=== PATIENT | female | born 1990 | race African-American/Black ===

== ENCOUNTER → 2020-07-31 07:47 | Outpatient (CLI) | payer BC, SELFPAY ==
[2020-07-31] MEDS: COVID-19 VACC #1, MRNA(MOD) 100 MCG/0.5 ML VIAL IM (07:55)
== END ==
PROVIDERS: Visit Provider Internal Medicine
DX: Z23 Encounter for immunization (principal)
CPT/HCPCS: 0011A; 91301

== ENCOUNTER → 2020-08-28 08:07 | Outpatient (CLI) | payer OTHER, SELFPAY ==
[2020-08-28] MEDS: COVID-19 VACC #2, MRNA(MOD) 100 MCG/0.5 ML VIAL IM (08:15)
== END ==
PROVIDERS: Visit Provider Internal Medicine
DX: Z23 Encounter for immunization (principal)
CPT/HCPCS: 0012A; 91301

== ENCOUNTER → 2021-02-02 08:19 | Outpatient (CLI) | payer OTHER, SELFPAY ==
--- NOTE | 2021-02-02 08:21 | DIET.OUTPTC ---
Dietary Outpatient Consultation Note Consultation Date: 02/02/20[address] 30[address] visit for prediabetes and desire for weight loss. Ht: 5'4 Wt: 210# (has lost 10# in 40 days) no particular weight goal BMI: 36.0 Pt was working from home for several months and felt was healthier then because could cook healthy meals in middle of day. Pt stopped drinking etoh 40 days ago, was consuming 6 hard ciders throughout evening daily, has been eating pretty healthy for 6-8 months otherwise. 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 eats at 10am- triple zero tamazight yogurt c 1-2 cups fruit (cantaloupe, watermelon, grapes, kiwi) c water 12 lunch- workmates eat out- pt does not, 3oz turkey, 15 carrots, 1/2 cucumber, sometimes hummus, water 2pm snack- cheese and or pistachios, almonds, cashews finishes work, drives home eats leftovers- 7 layer dip c tortillas, tilapia, shrimp, scallops, steak, mcnally roasted vegetables once per week has something after dinner before quit drinking was having 6 ciders per night sometimes eats bread and pasta drinks 80oz water daily plus 10oz unsweet iced tea doesn't like fizzy water, little to no soda consumption. EER: 1440 kcal, 72g PRO dislikes: rice (doesn't eat often), artichokes, peas No current physical activity, pt would like to get diet organized first then work on fitness. Labs: lipids within good range, A1c 5.7 (preDM) RD Impression: Pt will benefit from weight reduction to regulate labs and feel more confident in her body. Pts work of eliminating etoh likely will bring A1c down as hard cider does have residual sugar. Pt following healthy eating habits, RD reinforced good work and provided education to further refine efforts. Pt should consider adding regular physical activity. Nutrition Dx: altered nutrition related laboratory values (A1c) r/t excessive etoh consumption aeb pt reports healthy balanced diet but drinks 6 hard ciders in evening often in place of balanced dinner meal, pt stopped drinking etoh 40 days ago, A1c 5.7. Interventions: 1. Reinforced pts good work of cutting back etoh consumption in evening. Discussed appropriate etoh intake for women as no more than 1 etoh equivalent up to four days per week. 2. Educated pt on pre-DM, A1c, dietary and exercise interventions to regulate BG. 3. Educated pt on balanced plate eating, calculated kcal and protein needs. Used pts usual day as example and collaborated c pt on ways to modify usual day to support metabolic health and weight loss efforts. 4. Discussed strategies for dinner meal planning. Provided pt meal planning template. 5. Pt would like repeat A1c for motivation on lifestyle modifications. Monitoring/Evaluations: f/u scheduled in early March to assess progress and problem solve barriers Electronically Signed by: Anjali Fisher 02/02/21 08:21 Clinical Dietitian [address] [address]
[2021-02-02 08:48] VITALS: BMI 35.6
== END ==
PROVIDERS: PCP Student in an Organized Health Care Education/Training Program; Referring Provider Student in an Organized Health Care Education/Training Program; Visit Provider Student in an Organized Health Care Education/Training Program
DX: R73.03 Prediabetes (principal); Z71.3 Dietary counseling and surveillance; E66.9 Obesity, unspecified; Z68.36 Body mass index [BMI] 36.0-36.9, adult
CPT/HCPCS: 97802

== ENCOUNTER → 2021-04-15 16:17 | Outpatient (CLI) | payer OTHER, SELFPAY ==
--- NOTE | 2021-04-15 16:25 | DIET.PN1 ---
Dietary Progress Note 30y F attending RD f/u for preDM. Since our last visit in late January, pt went to [place] with her mom. Pt went 91d without etoh but has started drinking around 1 glass wine per day. Pt does not want to drink more than this and may have more bursts of no etoh. Pt could not believe before she was drinking 1200 kcals in hard cider after work each night. Pt is motivated by her current weight loss and wants to continue healthy progress. Pt having a few barriers to healthy eating including not having seasonal watermelon, grapes, cantaloupe, martin kiwi that taste good from [employer]. Pt has not started working out yet, but plans to start a Beach Body plan after her birthday in May. Weight: 203# Weight Goal: 170# (-17# since start) Measurements: arm: 16 torso (belly button): 46.5 thigh: 26 Interventions: 1. Discussed options instead of etoh if she notices becomes a daily habit again. Pt prefers non-carbonated cold beverages. Collaborated c pt on ideas for low kcal options. 2. Educated pt on added sugars in the diet. Encouraged pt to limit added sugars to 24g/d. Practiced label reading and looked up a few products pt likes online. 3. Encouraged pt to move forward with physical activity intervention in May to build lean muscle and support metabolic health. F/u in Jun 2021 to assess progress and problem solve barriers. Electronically Signed by: Anjali Fisher 04/15/21 16:25 Clinical Dietitian [address] [address]
== END ==
PROVIDERS: PCP Student in an Organized Health Care Education/Training Program; Referring Provider Student in an Organized Health Care Education/Training Program; Visit Provider Student in an Organized Health Care Education/Training Program
DX: R73.03 Prediabetes (principal); Z71.3 Dietary counseling and surveillance
CPT/HCPCS: 97803

== ENCOUNTER → 2021-06-24 16:29 | Outpatient (CLI) | payer OTHER, SELFPAY ==
--- NOTE | 2021-06-25 12:15 | DIET.PN1 ---
Dietary Progress Note Visit date: 06/24/21 31y F attending f/u for preDM. Pt states she sortof fell off meal planning since the [place] snow storm and has been eating out more than she would like. Pt has been walking three times per week, 30min each time with significant incline. Despite pts backsliding, she has managed to lose an additional 5# (22# total) with 2.5 inches off her waist which is great progress towards reversing preDM and supporting metabolic health, pt has lost 10% of her body weight. 198# (-5# in 2mo, -22# since start) Compared today's measurements since 2mo ago: 15 arm (-1) 44 torso (-2.5) 25.5 thigh (-0.5) Pt picking up her new Nintendo Switch tomorrow so she can do Lets Dance. Pt enjoys dancing and when plays this game really does break a sweat. Interventions: 1. Wrote grocery list of items pt to cone picker to get back to meal planning on Monday. 2. Encouraged pts continued progress and increase in physical activity. Reminded pt goal is 10% weight loss AND 150 minutes/week physical activity. Monitoring/Evaluations: Pt finds RD check ins valuable, scheduled f/u in 2mo. Electronically Signed by: Anjali Fisher 06/25/21 12:[address] [address]
== END ==
PROVIDERS: PCP Student in an Organized Health Care Education/Training Program; Referring Provider Student in an Organized Health Care Education/Training Program; Visit Provider Student in an Organized Health Care Education/Training Program
DX: R73.03 Prediabetes (principal); Z71.3 Dietary counseling and surveillance
CPT/HCPCS: 97803

== ENCOUNTER → 2021-09-02 16:30 | Outpatient (CLI) | payer OTHER, SELFPAY ==
--- NOTE | 2021-09-02 16:34 | DIET.PN1 ---
Dietary Progress Note 31y F attending RD visit for help with preDM Pt recently got labs drawn, A1c 5.5 no longer preDM! Wt stable from 2mo ago, 198#, pt desires to get down to 175#. Measurements: arm 14.5in (-0.5) 45 torso (+1) 25 leg (-0.5) Pt went to chiropractor a month ago, was getting back spasms, found to be misaligned, hasn't exercised much during tx because doesn't want to aggravate back. Discussed core exercises to support back muscluature and spinal alignment, awareness of body position with exercise. Pt feels she is doing well with meal planning and snacking. f/u in 8w to continue supporting pt in healthy BG and weight. Electronically Signed by: Anjali Fisher 09/02/21 16:34 Clinical Dietitian [address] [address]
== END ==
PROVIDERS: PCP Student in an Organized Health Care Education/Training Program; Referring Provider Student in an Organized Health Care Education/Training Program; Visit Provider Student in an Organized Health Care Education/Training Program
DX: R73.03 Prediabetes (principal); Z71.3 Dietary counseling and surveillance
CPT/HCPCS: 97803

== ENCOUNTER → 2021-11-04 16:08 | Outpatient (CLI) | payer OTHER, SELFPAY ==
--- NOTE | 2021-11-04 16:12 | DIET.CONS ---
Dietary Consultation Note Assessment: 31y F attending RD f/u for preDM and weight management. Wt: 201# (+3# in 2mo) Pt reports she went to [place] on a trip in early October then got Covid. Pt went to [employer] today to stock up on healthy foods to get back on track. Pts step counter is 4,000/d at best. Goal: For the next month, pt hit 6k steps every day. Arm:15 Torso: 45 Le.5 Monitoring/Evaluations: f/u in 8w to continue monitoring weight and providing supportive education. Electronically Signed by: Anjali Fisher 11/04/21 16:12 Clinical Dietitian [address] [address]
== END ==
PROVIDERS: PCP Student in an Organized Health Care Education/Training Program; Referring Provider Student in an Organized Health Care Education/Training Program; Visit Provider Student in an Organized Health Care Education/Training Program
DX: R73.03 Prediabetes (principal); Z71.3 Dietary counseling and surveillance
CPT/HCPCS: 97803

== ENCOUNTER → 2022-01-20 16:19 | Outpatient (CLI) | payer OTHER, SELFPAY ==
--- NOTE | 2022-01-20 16:45 | DIET.OUTPTC ---
Dietary Outpatient Consultation Note Consultation Date: 01/20/2022 31y F attending f/u RD visit for preDM and weight management. Pt reports unusual stress over the past month as she unexpectedly had to move to a new home and get a roomate. Pt states benefit is her new roomate has healthy habits. They recently started meal delivery program with focus on keto and calorie control meals which are non-GMO and no refined sugars. Pt getting back on track with meal planning breakfast and lunches. Pt desires some new ideas for lunches as she started eating mac n cheese cups. Pt aiming to get 6k steps daily, almost hits her goal, when moving was up to 14k steps. Pt with some issues c menstruation, is on IUD and depo provera, feels she has gained some weight and feels bloated c new meds. Wt: 202# (+1#, -18# from start of nutrition therapy) Arm: 15 (same) torso: 46 (+1) le.5 Pt will ask PCP for renewal of MNT for the next year as accountability helpful for her to maintain healthy PO intake and exercise. Interventions: 1. Discussed slips in healthy habits with change in life situations. Pt already implementing supportive habits 2w after move. 2. Reinforced importance of regular physical activity for good BG and insulin sensitivity, pt aiming for 6k steps daily and set up switch to do dancing games. 3. Reinforced importance of dietary fiber for hormonal health and satiety with weight management. f/u in 8w to continue education and monitoring. Electronically Signed by: Anjali Fisher 01/20/22 16:45 Clinical Dietitian [address] [address]
== END ==
PROVIDERS: PCP Student in an Organized Health Care Education/Training Program; Referring Provider Student in an Organized Health Care Education/Training Program; Visit Provider Student in an Organized Health Care Education/Training Program
DX: R73.03 Prediabetes (principal); Z71.3 Dietary counseling and surveillance
CPT/HCPCS: 97803

== ENCOUNTER → 2022-02-28 09:44 | Outpatient (CLI) | payer OTHER, SELFPAY ==
--- NOTE | 2022-02-28 | DI.US.S_ITS ---
PROCEDURE: US PELVIC COMPLETE INDICATIONS: Excessive and frequent menstruation TECHNIQUE: Real-time scanning was performed of the pelvic organs, with image documentation. Additional endovaginal scanning was necessary due to incomplete visualization of the adnexal and endometrial structures by transabdominal scanning. COMPARISON: None. FINDINGS: Uterus: Uterus is anteverted and normal in size at 6.3 x 3.8 x 3.7 cm. The myometrium is homogeneous. The endometrium measures 5.4 mm combined thickness. There is no gross endometrial mass. Trace amount of fluid is seen within endometrium. Intrauterine device is noted within endometrium near fundus. Ovaries: The right ovary measures 3.1 x 1.8 x 1.9 cm, with a calculated ovarian volume of 5.5 cc. The left ovary measures 3.8 x 2.3 x 2 cm, with a calculated ovarian volume of 9.1 cc. The ovaries have a normal sonographic appearance. Less than 12 follicles can be seen in each ovary. No adnexal masses are seen. Other: No pathologic free abdominal or pelvic fluid. IMPRESSION: 1. IUD within central endometrium. No endometrial mass. Trace amount of endometrial fluid. 2. No discrete uterine fibroid. 3. Normal appearing bilateral ovaries. We strive to produce accurate, complete, and clear reports of imaging services. To assist us in improving patient care, this report was composed using standard report templates and voice recognition software. Therefore, it may contain abnormal punctuation, insertions and/or omissions. Occasional wrong-word or sound-alike substitutions may occur. Though we review the report and make efforts to correct it, we do recommend that the report be read carefully in proper context to recognize any text inaccuracies. Dictated by: Emanuel Perdomo M.D. on 02/28/2022 at 12:53 Approved by: Emanuel Perdomo M.D. on 02/28/2022 at 12:55
== END ==
PROVIDERS: PCP Family Medicine; Referring Provider Family Medicine; Visit Provider Family Medicine
DX: N92.1 Excessive and frequent menstruation with irregular cycle (principal); Z97.5 Presence of (intrauterine) contraceptive device
CPT/HCPCS: 76830; 76856

== ENCOUNTER → 2022-03-17 15:45 | Outpatient (CLI) | payer OTHER, SELFPAY ==
--- NOTE | 2022-03-17 15:53 | DIET.OUTPTC ---
Dietary Outpatient Consultation Note Consultation Date: 03/17/20[address] 31[address] attending RD visit for help with preDM, HLD and weight management. Pt +3# since last visit 8w ago, still -15# from start of nutrition therapy. Pts labs came back A1c 5.4, lipids WNL. Pt with new onset HTN- has been checking BP for 3w averaging 130/100. Pt not currently tracking steps, forgetting to charge fitbit. Pt continues to do meal delivery service- B: smoothies from food delivery [employer]- and water, maybe twice per week has black coffee Sn: not snacking L: mac n cheese cup sometimes with broccoli D: 4 days per week meal delivery- somewhat high in sodium (800-900mg per serving), sometimes cooks at home or take out- salads or Irish foods Sn: outshine fruit bar or popcorn etoh: a couple Coors light each night Pt feeling stressed about having a roommate causing increased etoh intake, salty food choices and decreased physical activity. Discussed self-care and mini exercises she can do to support mental health. Encouraged pt to have a variety of interesting beverages in fridge to preferentially grab instead of etoh in the evening or even interspersed with etoh. Discussed limiting sodium to 600mg per meal. F/u in 8w to continue monitoring and education. Electronically Signed by: Anjali Fisher 03/17/22 15:53 Clinical Dietitian [address] [address]
== END ==
PROVIDERS: PCP Family Medicine; Referring Provider Student in an Organized Health Care Education/Training Program; Visit Provider Student in an Organized Health Care Education/Training Program
DX: R73.03 Prediabetes (principal); E78.5 Hyperlipidemia, unspecified; I10 Essential (primary) hypertension; Z71.3 Dietary counseling and surveillance
CPT/HCPCS: 97803

== ENCOUNTER → 2022-06-27 14:59 | Outpatient (CLI) | payer OTHER, SELFPAY ==
--- NOTE | 2022-06-27 15:08 | DIET.OUTPTC ---
Dietary Outpatient Consultation Note Consultation Date: 06/27/2022 32y F attending RD f/u for help with preDM and weight management. Pt on depo provera and IUD, having constant menstruation. Unclear if this is contributing to her recent weight regain. Pt +6# since March B: Meal delivery smoothies, acai bowl with granola packet L: Meal delivery service D: [employer] brown rice and quinoa packets c seafood and veggies Sn: mini masters peppers, Twisted Tea- 23g sugar, 25g carbs, 200kcals- pt has been drinking these regularly recently and likely implicated in her hypertension and weight gain. Pt will stop drinking these and will try to cut down on etoh intake or at least switch to seltzer or vodka when having intake. Pt dislikes hiking but is hiking several days per week with neighbors to support cardiovascular health. Interventions: 1. Educated pt on fiber goal of 25g/d. Provided information sheet on fiber content of foods. Pt will add 2 tsp harmeet seeds to morning smoothie and aim for higher fiber vegetables at dinnertime. 2. Reinforced pt decision to cut down on etoh and switching to low carb/lower kcal versions when consuming. F/u in 6w to continue monitoring and support pts efforts at managing preDM and weight. Electronically Signed by: Anjali Fisher 06/27/22 15:08 Clinical Dietitian [address] [address]
== END ==
PROVIDERS: PCP Family Medicine; Referring Provider Family Medicine; Visit Provider Family Medicine
DX: R73.03 Prediabetes (principal); Z71.3 Dietary counseling and surveillance
CPT/HCPCS: 97803

== ENCOUNTER → 2022-08-01 16:27 | Outpatient (CLI) | payer OTHER, SELFPAY ==
--- NOTE | 2022-08-01 16:31 | DIET.OUTPTC ---
Dietary Outpatient Consultation Note Consultation Date: 08/01/2022 32y F attending RD f/u for help with preDM and weight management. Weight: 216# (+5# in 6w) Since last visit pt stopped drinking etoh. Started new med for hypertension as it was getting worse not better with eliminating etoh and walking regularly. Pt is in process of moving out of stressful living situation. Has consultation with [facility] as her menstruation has been constant for several months. Interventions: Reviewed reccs for low sodium diet, aiming for 600mg at meals. Reinforced supportive eating while getting worked up for current health symptoms. Will f/u in 2mo to assess weight and health status before restarting weight loss progress. Electronically Signed by: Anjali Fisher 08/01/22 16:31 Clinical Dietitian [address] [address]
== END ==
PROVIDERS: PCP Family Medicine; Referring Provider Family Medicine; Visit Provider Family Medicine
DX: R73.03 Prediabetes (principal); Z71.3 Dietary counseling and surveillance
CPT/HCPCS: 97803

== ENCOUNTER → 2023-11-16 15:28 | Outpatient (CLI) | payer OTHER, SELFPAY ==
--- NOTE | 2023-12-07 12:17 | DIAB.MNT ---
Initial Diabetes Medical Nutrition Therapy Assessment Name: Bryanna Eid Date: 11/16/23 Time: 330-430p Dx: Type II Diabetes Provider: Hilary Morales Learning Style: Watching Bryanna presents for initial MNT visit. Report previous h/o visits with RD, Anjali Abel. Per referral, diagnosis of T2DM. Recent hgA1c of 5.7% in 09/2023 and 5.6% in 01/2023. Unclear of h/o diagnostic criteria, ie prior elevated hgA1c or fasting blood sugars. Bryanna reports today that she is unaware of a diabetes diagnosis, though was aware of prediabetes or borderline status. Denies any FH of DM. Was seeing Anjali for wt management q 6-8 weeks. Interested in tracking her food. Has an kelly she prefers. Today we set her macronutrient percentages in the kelly. Today she is looking for helpful eating recommendations, accountability, info on meal timing, and taking measurements as she did with previous RD. Reports some recent stress with moving 2x, she describes as chaos Diet Recall: 6a: coffee, sweetened creamer 12p: burrito bowl with 1/2c rice, veg, meat, cheese, /8-1/4c beans OR 2 slices pizza OR 2 tacos +/- chips 5p: salad with protein 7p: 2-3 servings ETOH, ie cocktails (mojito or strawberry lemonade) or beers other snacks: mixed nuts, Ugandan yogurt, meat stick Anthropometrics: Ht: 64 Wt: 231# today in clinic Weight history: Reports 198# in 08/2021 Physical Activity: No program currently. 4-5 years ago use to dance 60 minutes for activity. Where she lives now she does not have enough privacy with windows to restart this. Self-Monitoring Blood Glucose: None. Diabetes Medications: None Pertinent Labs: HGA1c: 5.6% 01/2023 5.7% 09/2023 Past Medical History: Per referral: impaired glucose tolerance, CAD, GERD, T2DM, Pure hypercholesterolemia Nutrition Rx: kcals: 1440 Carbohydrates: 50%-- 180g Protein: 20% --72g Fat: 30% -- 48g Nutrition Diagnosis: - Food and nutrition knowledge deficit r/t needing eating recommendations aeb pt report and diet recall - Excessive ETOH intake r/t stage of change aeb diet recall - Physical inactivity r/t feeling self conscious in new space to restart dance activities aeb pt report Intervention: This participant was very receptive. Provided appropriate educational handouts. Discussed the following topics: Completed intake assessment. Discussed barriers to care. HgA1c values from referral and different diagnostic criteria for T2 (FBG, random BG of 200+, hgA1c, OGTT) Risk factors for T2DM Ways to add protein earlier in the day Meal timing, macronutrient recommendations Potential benefits and her h/o tracking with kelly Physical activity barriers and ideas Created SMART goals for patient self-care and success. Goals: Add protein to morning, ie kefir, protein shake, yogurt Start using tracking kelly Follow-up: FRANTZ ALTAMIRANO follow-up in 2-3 weeks. Bryanna is asking for frequent follow-ups for wt management. She does not seem to think she has T2DM. Encouraged her to discuss further with her provider. We discussed scheduling f/u with our new RD for more wt management check-ins. If needed, she can come back to DM education prn. Soila Oreilly, FRANTZ, [facility] Certified Diabetes Care and Councilperson P: [phone] Thank you for this referral
== END ==
PROVIDERS: PCP Family Medicine; Referring Provider Family Medicine
DX: E11.9 Type 2 diabetes mellitus without complications (principal); Z71.3 Dietary counseling and surveillance
CPT/HCPCS: 97802

== ENCOUNTER → 2023-12-07 14:52 | Outpatient (CLI) | payer OTHER, SELFPAY ==
--- NOTE | 2024-01-05 13:33 | DIET.OUTPTC ---
Dietary Outpatient Consultation Note Consultation Date: 12/07/2023 Assessment: 33 y F referred to dietitian for pre-diabetes and weight management. Pt [facility] and established macro goals in food tracking kelly and discussed adding snack to morning. Is following macro amounts set and is comfortable with amount. Has added in snack for breakfast. Previously met w/ RD during [id number], where she found accountability, weight and measurements were most helpful. Diet recall: B-coffee, Kefir or swazi yogurt and nuts or pre-cut cheese slices L-burrito bowels (1/2 c rice, veg, meat/cheese, beans 05/15 to 05/11 c) D- out to eat (pizza, hamburger, pasta) ETOH drinks - vodka sodas 2-3/d 80-100 oz water/d Snacks: hummus and vegs Activity: has done some walking, but dislikes the heat Ht: 5 ft 4 in Wt: 230.2 lb BMI: 39.5 Weight History: 216 lb 08/01/22 198 lb on 09/02/21 210 lb on 02/02/21 Measurements: WC: 46 Left arm: 16 Left le 07/09 HGA1c: 5.6% 01/2023 5.7% 09/2023 Nutrition Diagnosis: (initial) Food and nutrition knowledge deficit r/t needing eating recommendations aeb pt report and diet recall Excessive ETOH intake r/t stage of change/social aeb 2-3 drinks/day Physical inactivity r/t environment aeb assessment Interventions: 1. Reviewed meal timing, macro recs, consistent carbs 2. Fiber recommendations, incorporating fiber when out to eat -Educ on fiber sources, discussed options 3. Physical activity and barriers 4. Hunger fullness scale, creating sustainable lifestyle changes Goals: 1. Fiber source with dinner when out to eat 2. Continue with tracking food as helpful for accountability w/ monitoring hunger/fullness 3. (future) Reduce ETOH to 1 drink/day EER: 6131-3605 kcals 70-80 g protein Monitoring/Evaluations: f/u in 6 wks Electronically Signed by: Yue Mendoza 01/05/24 13:33 Clinical Dietitian [address] [address]
== END ==
PROVIDERS: PCP Family Medicine; Referring Provider Family Medicine
DX: R73.03 Prediabetes (principal); Z68.39 Body mass index [BMI] 39.0-39.9, adult; Z71.3 Dietary counseling and surveillance
CPT/HCPCS: 97803

== ENCOUNTER → 2024-02-13 14:16 | Outpatient (CLI) | payer OTHER, SELFPAY ==
--- NOTE | 2024-02-19 15:05 | DIET.OUTPTC ---
Addendum entered by Yue Mendoza 03/04/24 16:34: *consult date was 02/12/24 Original Note: Dietary Outpatient Consultation Note Consultation Date: 02/19/2024 Assessment: 33 y F referred to dietitian for pre-diabetes and weight management. Pt has stopped drinking on the weekdays and has prepared soup from restaurants with vegetable serving in them for dinner. Drinks 3-4 drinks on weekend. Is going to trial overnight oats for breakfast - reviewed labels w/ pt - 8 g fiber, 20 g protein, 6 g added sugar for breakfast, 32-43 g CHO Reviewed myfitnesspal- CHO- doing around 140-150 g. Goal set at 183 g, carbohydrates for the most part are distributed between 3 meals. 73 g protein B-Grapes and nuts + Starbucks espresso drink that is 5 g CHO L-Tacos for lunch 54 g CHO D-Soup and ice cream Activity: has been doing more mini work breaks of standing up and walking - Has knee pain Ht: 5 ft 4 in Wt: 230.2 lb BMI: 39.5 Weight History: 216 lb 08/01/22 198 lb on 09/02/21 210 lb on 02/02/21 HGA1c: 5.6% 01/2023 5.7% 09/2023 Nutrition Diagnosis: (initial) Food and nutrition knowledge deficit r/t needing eating recommendations aeb pt report and diet recall Excessive ETOH intake r/t stage of change/social aeb 2-3 drinks/day -improving Physical inactivity r/t environment and knee pain aeb assessment -improving Interventions: 1. Reviewed and discussed labels 2. Physical activity and barriers 3. Hunger fullness scale, creating sustainable lifestyle changes Goals- continue mini work break movement as tolerated, trial overnight oats in morning for 2-3 CHO serving carb breakfast, continue with tracking food as helpful for accountability w/ monitoring hunger/fullness EER: [id number] kcals 70-80 g protein Monitoring/Evaluations: f/u in 6 wks Electronically Signed by: Yue Mendoza 02/19/24 15:05 Clinical Dietitian [address] [address]
== END ==
PROVIDERS: PCP Family Medicine; Referring Provider Family Medicine
DX: R73.03 Prediabetes (principal); Z71.3 Dietary counseling and surveillance; Z68.39 Body mass index [BMI] 39.0-39.9, adult
CPT/HCPCS: 97803

== ENCOUNTER → 2024-04-11 13:48 | Outpatient (CLI) | payer OTHER, SELFPAY ==
--- NOTE | 2024-04-12 13:14 | DIET.OUTPTC ---
Addendum entered by Yue Mendoza 04/12/24 13:27: consult date was 04/11/24 Original Note: Dietary Outpatient Consultation Note Consultation Date: 04/12/2024 Assessment: 33 y F referred to dietitian for pre-diabetes and weight management. Pt reports reduction in going out for lunch at work and packing her own lunch. Goes to bed earlier and eats dinner at home instead of going out. Has noticed changes in how she feels in her clothing. Is doing movement on work breaks still. Started [employer] for increased movement. Feels satisfied after meals. B-yogurt L-leftovers D-fish and salad or fish and pasta (1/2-1c) or rice noodles with vegetables (12-1c noodles) Nutrition Diagnosis: (Improved) Food and nutrition knowledge deficit r/t needing eating recommendations aeb pt report and diet recall (improved) Excessive ETOH intake r/t stage of change/social aeb 2-3 drinks/day (improved) Physical inactivity r/t environment and knee pain aeb assessment Interventions: 1. Discussed nutrition goals during holiday season 2. Encouraged continuation with what pt is doing Goals- continue current efforts, 25-27 g fiber/day F/u in 3 months Electronically Signed by: Yue Mendoza 04/12/24 13:14 Clinical Dietitian [address] [address]
== END ==
PROVIDERS: PCP Family Medicine; Referring Provider Family Medicine
DX: R73.03 Prediabetes (principal); Z71.3 Dietary counseling and surveillance
CPT/HCPCS: 97803

== ENCOUNTER 2025-01-13 07:23 | Day surgery (SDC) | payer OTHER, SELFPAY ==
[2025-01-13 07:47] VITALS: BP 132/91; PULSE 95; RESP 16; TEMP 36.1; O2SAT 98
[2025-01-13] MEDS: LACTATED RINGERS 1,000 ML 42 ML IV (08:00)
--- NOTE | 2025-01-13 08:55 | PM.PREOP ---
Pre-operative Note COVID-19 COVID-19 status: Not tested Interval Note History & Physical reviewed/Exam performed by Physician: Yes Changes to H&P: No ASA Class (for procedural sedation): II
--- NOTE | 2025-01-13 08:55 | PM.OP.EC ---
Operative Date/Time/Diagnoses Date of procedure: 01/13/25 Time of procedure: 09:32 Pre-op diagnosis: See indication and findings Post-op diagnosis: same Procedure & Clinicians Study performed: EGD and colonoscopy Same procedure(s) as scheduled: Yes Indications: Abdominal pain and loose stools Surgeon: Corina Cummings Anesthesia Type: Other Procedure Notes Procedure in detail: After informed consent was obtained the patient was placed in left lateral decubitus position. The video upper scope was placed into the oropharynx and with the patient's help swallowed into the esophagus. The esophagus stomach and duodenal were carefully examined. On withdrawal retroflexed view the GE junction was performed. The patient was then turned and the colonoscope substituted. This was placed in the rectum slowly advanced cecum. Preparation was good. On slow withdrawal mucosa was carefully examined. The scope was removed. The patient tolerated procedure well. Blood loss none Complications none Sedation mac Findings EGD 1. Normal esophagus 2. Patchy gastric erythema biopsies taken to rule out Helicobacter 3. Normal duodenal bulb and sweep biopsies taken to rule out celiac 4. 5 mm polyp in the greater curve biopsies taken to rule out adenoma Colonoscopy 1. Normal colonoscopy to cecum random biopsies taken Will be in touch regarding biopsies and this will direct further workup as necessary.
--- NOTE | 2025-01-13 09:19 | PATH_ITS ---
[facility] Accession Number: [id number] No. of containers..04 Tissue . 01 Material submitted: . PART A: small bowel - SMALL BOWEL BIOPSY PART B: gastrointestinal site - STOMACH BIOPSY PART C: gastrointestinal site - GASTRIC POLYP PART D: colon - COLON, RANDOM . 01 Diagnosis: A. SMALL BOWEL, BIOPSY: Small bowel mucosa with no diagnostic abnormality. Negative for active inflammation, features of sprue, dysplasia, or malignancy. . B. STOMACH, BIOPSY: Gastric antral and body mucosa with no diagnostic abnormality. No evidence of Helicobacter organisms on H/E stain. Negative for intestinal metaplasia. Negative for dysplasia or malignancy. . C. GASTRIC POLYP: Fundic gland polyp. No evidence of Helicobacter organisms on H/E stain. Negative for intestinal metaplasia. Negative for dysplasia and malignancy. . D. RANDOM COLON, BIOPSY: Colonic mucosa with no diagnostic abnormality. Negative for active, chronic, and microscopic colitis. Negative for dysplasia and malignancy. . [facility] 01/23/2025 1523 Local . 01 Electronically signed: . Toro Pavon MD, PhD, Pathologist NPI- [id number] . 01 Gross description: . A. Received in formalin with two identifiers and small bowel biopsies, are two soft fraser tissue fragments ranging from 0.3 to 0.4 cm in greatest dimension. Entirely submitted in cassette A1. B. Received in formalin with two identifiers and stomach biopsy, are two soft fraser tissue fragments ranging from 0.2 to 0.3 cm in greatest dimension. Entirely submitted in cassette B1. C. Received in formalin with two identifiers and gastric polyp, is a single soft fraser tissue fragment measuring 0.2 cm in greatest dimension. Entirely submitted in cassette C1. D. Received in formalin with two identifiers and random colon biopsy, are four soft fraser tissue fragments ranging from 0.3 to 0.3 cm in greatest dimension. Entirely submitted in cassette D1. (AER:[id number]) /BG 01/21/2025 0128 Local . 01 Pathologist provided ICD-10: R10.13, R19.7, K31.7 . 01 CPT . 845548, 488437, 108692, 774605 Specimen Comment: A courtesy copy of this report has been sent to [phone] Performed at: [address] [address], [place], [place] [id number] MD Vasquez Young MD Phone: [phone]
[2025-01-13 09:26] VITALS: BP 114/72; PULSE 93; RESP 12; TEMP 36.2; O2SAT 98
[2025-01-13 09:30] VITALS: BP 135/78; PULSE 83; RESP 17; O2SAT 99
[2025-01-13 09:35] VITALS: BP 157/104; PULSE 77; RESP 18; TEMP 36.1; O2SAT 99
== END 2025-01-13 09:50 | disposition home or self-care (01) ==
PROVIDERS: PCP Family Medicine; Referring Provider Internal Medicine Gastroenterology; Visit Provider Internal Medicine Gastroenterology
PROC: 0DJ08ZZ Inspection of Upper Intestinal Tract, Via Natural or Artificial Opening Endoscopic (ICD-10-PCS; CPT 45380; principal; 2025-01-13 08:30)
PROC: 0DJD8ZZ Inspection of Lower Intestinal Tract, Via Natural or Artificial Opening Endoscopic (ICD-10-PCS; CPT 45378; 2025-01-13 08:30)
DX: R10.9 Unspecified abdominal pain (principal); R19.7 Diarrhea, unspecified; K31.7 Polyp of stomach and duodenum; F17.210 Nicotine dependence, cigarettes, uncomplicated
CPT/HCPCS: 45380; 43239; J2704